=== PATIENT | female | born 1990 | race Hispanic/Latino ===

== ENCOUNTER 2017-08-03 11:19 | Emergency (ER) | payer MEDICAID ==
[~2017-08-03] VITALS: Ht 160 cm; Wt 59.5 kg
[~2017-08-03 11:19] MED LIST: MAGICMW SSP; NYQU1LIQ PO
[2017-08-03] MEDS ORDERED: OSEL75CA PO (13:16)
[2017-08-03] MEDS ORDERED: ZOFR4TAB3 PO (13:16)
[2017-08-03] MEDS ORDERED: CHERSYP3 PO (13:16)
[2017-08-03] MEDS ORDERED: PROAAER10 INH (13:16)
[2017-08-03 13:30] VITALS: BP 136/71
== END 2017-08-03 13:35 | disposition home or self-care (01) ==
LOC: M ED 11:19
DX: B34.9 Viral infection, unspecified (principal); R05 Cough; R11.0 Nausea; J45.909 Unspecified asthma, uncomplicated

== ENCOUNTER → 2018-07-07 | Outpatient (REF) | payer MEDICAID, OTHER, SELFPAY | LOC: M LAB REF 09:00 | DX: Z12.4 Encounter for screening for malignant neoplasm of cervix (principal) | CPT/HCPCS: 88142; G0123 ==

== ENCOUNTER → 2018-08-19 | Outpatient (CLI) | payer MEDICAID ==
[2018-08-19 18:21] LABS: BASO # 0.1 10^3/uL (0.0-0.2); BASO % 0.4 % (0.0-1.0); EOS # 0.7 10^3/uL (0.0-0.50); EOS % 5.1 % (0.0-3.0); HEMOGLOBIN 12.1 g/dl (12.0-15.5); IMMATURE GRANULOCYTE % 0.5 % (0-3.0); LYMPH # 3.7 10^3/uL (1.5-6.5); LYMPH % 27.2 % (24.0-44.0); MEAN CORPUSCULAR HEMOGLOBIN 26.2 pg (27.0-33.0); MEAN CORPUSCULAR HGB CONC 32.7 g/dl (32.0-36.5); MEAN CORPUSCULAR VOLUME 80.1 fl (80.0-96.0); MONO # 1.3 10^3/uL (0.0-0.8); MONO % 9.7 % (0.0-5.0); NEUTROPHILS # 7.7 10^3/uL (1.8-7.7); NEUTROPHILS % 57.1 % (36.0-66.0); PLATELET COUNT, AUTOMATED 428 10^3/uL (150-450); RED BLOOD COUNT 4.62 10^6/uL (4.00-5.40); RED CELL DISTRIBUTION WIDTH 13.6 % (11.5-14.5); WHITE BLOOD COUNT 13.5 10^3/uL (4.0-10.0)
[2018-08-19 20:08] LABS: CHLAMYDIA DNA AMPLIFICATION NEGATIVE (NEGATIVE); GC DNA AMPLIFICATION NEGATIVE (NEGATIVE)
[2018-08-20 11:29] LABS: HBsAg Prenatal NEGATIVE (NEGATIVE); HIV 1&2 SCREEN CENTAUR NEGATIVE (NEGATIVE); RUBELLA IgG QUALITATIVE IMMUNE (IMMUNE)
[2018-08-20 11:29] LABS: HEPATITIS C VIRUS ABY INDEX 0.2 INDEX (<0.8)
== END ==
LOC: M SMT 14:25
DX: Z34.81 Encounter for supervision of other normal pregnancy, first trimester (principal); Z3A.09 9 weeks gestation of pregnancy
CPT/HCPCS: 86762

== ENCOUNTER → 2018-10-27 | Outpatient (CLI) | payer MEDICAID, OTHER ==
[~2018-10-27] MED LIST changes: +CHERSYP3 PO; +OSEL75CA PO; +PROAAER10 INH; +ZOFR4TAB14 PO
--- NOTE | 2018-10-27 20:06 | REP ---
Clinical: Anatomical evaluation. Comparison: None . Findings: Examination demonstrates a single live intrauterine in cephalic presentation. motion is identified by technologist. Placenta is noted the posterior and grade grade 1 without evidence for placenta previa or abruption. Amniotic fluid volume is normal. Cervix measures 3.4 cm in length and appears closed. No evidence for nuchal cord. Gestational age by LMP 18 weeks 6 days with TRAVIS 03/24/2019 . Gestational age by current measurements 19 weeks 1 day with TRAVIS 03/22/2019 . FHR equals 153 beats per minute. BPD 4.5 cm 19 weeks 4 days HC 16.5 cm 19 weeks 2 days AC 13.9 19 weeks 2 days FL 2.9 cm 18 weeks 6 days HL 2.77 it is 18 weeks 6 days HC/AC ratio 1.19 Estimated weight 277 grams ( 56 percentile). Anatomical assessment demonstrates normal structures including cranium, choroid plexus, cavum, cerebellum/posterior fossa, facial features, lungs, four-chamber heart/ventricular outflow tracts, diaphragm, stomach, cord insertion/three-vessel cord, kidneys/bladder, spine, and extremities. Impression: 1. Single live intrauterine in cephalic presentation demonstrating appropriate interval growth. 2. Anatomical assessment is complete and normal. No gross abnormalities are identified. Electronically Signed by Cale Milian MD 10/27/2018 07:58 P
== END ==
LOC: M RAD 08:54
PROVIDERS: ATTEND Advanced Practice Midwife
DX: Z34.82 Encounter for supervision of other normal pregnancy, second trimester (principal); Z36.89 Encounter for other specified antenatal screening; Z3A.18 18 weeks gestation of pregnancy

== ENCOUNTER 2018-12-26 20:25 | Emergency (ER) | payer OTHER ==
[~2018-12-26] VITALS: Ht 157.5 cm; Wt 74.5 kg
[2018-12-27 00:23] LABS: INFLUENZA A AMPLIFICATION NEGATIVE (NEGATIVE); INFLUENZA B AMPLIFICATION NEGATIVE (NEGATIVE)
[2018-12-27 00:44] VITALS: BP 139/79
== END 2018-12-27 00:49 | disposition home or self-care (01) ==
LOC: M ED 20:25
DX: J06.9 Acute upper respiratory infection, unspecified (principal)

== ENCOUNTER → 2019-01-03 | Outpatient (CLI) | payer OTHER ==
[2019-01-03 13:34] LABS: HEMATOCRIT 33.7 % (36.0-47.0); HEMOGLOBIN 10.9 g/dl (12.0-15.5); MEAN CORPUSCULAR HEMOGLOBIN 26.9 pg (27.0-33.0); MEAN CORPUSCULAR HGB CONC 32.3 g/dl (32.0-36.5); MEAN CORPUSCULAR VOLUME 83.2 fl (80.0-96.0); PLATELET COUNT, AUTOMATED 424 10^3/uL (150-450); RED BLOOD COUNT 4.05 10^6/uL (4.00-5.40); WHITE BLOOD COUNT 14.5 10^3/uL (4.0-10.0)
== END ==
LOC: M SMT 08:08
PROVIDERS: ATTEND Obstetrics & Gynecology
DX: Z34.82 Encounter for supervision of other normal pregnancy, second trimester (principal); Z3A.00 Weeks of gestation of pregnancy not specified

== ENCOUNTER → 2019-02-25 | Outpatient (CLI) | payer OTHER | LOC: M SMT 09:10 | PROVIDERS: ATTEND Advanced Practice Midwife | DX: Z34.03 Encounter for supervision of normal first pregnancy, third trimester (principal); Z3A.00 Weeks of gestation of pregnancy not specified ==

== ENCOUNTER 2019-03-18 23:31 | Inpatient (IN) | payer OTHER ==
[~2019-03-18] VITALS: Ht 157.5 cm; Wt 80.5 kg
[2019-03-18 23:51] VITALS: BP 130/85
[2019-03-19] VITALS (30 sets, daily range): BP systolic 91–164; BP diastolic 54–96
[2019-03-19] MEDS ORDERED: PRENTAB9 PO (00:28)
[2019-03-19] MEDS ORDERED: LACTATED RINGER'S 1000 ML IV STA (00:46)
--- NOTE | 2019-03-19 01:01 | HPEPDOC ---
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 Past Medical History Surgical History: Diagnostic laparoscopy Family History Significant Family History: Other (depression) Social History Marital Status: Single Family situation: Spouse/partner home Psychosocial History: No pertinent psych hx * Smoker: non-smoker Alcohol: Denies Drugs: denies Abuse Violence Screening Have you been hit/kicked/slapp: No Have you been sexually assault: No Imunizations Tdap status: declined Allergies Coded Allergies: No Known Allergies (Unverified , 03/19/19) Medications Scheduled No.137/Iron/Folic Acd ( Vitamin Tablet) 1 Each Tablet, 1 TAB PO DAILY Physical Examination Physical Examination GENERAL: Alert and oriented times three. BREAST: . ABDOMEN: Gravid and non-tender to touch. FETUS: Is vertex (VTX) by sterile vaginal examination (SVE), fetus is vertex (VTX) by Emmanuel. HEART RATE: Regular rate and rhythm. LUNGS: Clear to auscultation (CTA). EXTREMITIES: No edema. No clonus. Deep tendon reflexes (DTRs) + 2. Laboratory Data 24H [facility]S Laboratory Tests 2 03/19/19 00:17: Serology Scanned Report Hepatitis B Testing Pertinent Laboratoy Data Blood Type: O+ RBC Antibody Screen: Negative HIV: Negative Hepatitis B: Negative Hepatitis C: Negative Rapid Plasma Reagin: Nonreactive Rubella: Immune Chlamydia/Gonorrhea: Negative Group B Streptococcus: Negative Quad Screen Test: Declined Glucose Tolerance Test: 97 Anatomy Ultrasound Ultrasound Date: Oct 27, 2018 Placenta Location: Posterior Normal Anatomy: Yes Placenta Previa: No Estimated Weight (grams): 277 Other Ultrasounds 08/19/18 dating 9w1d Steroid Therapy Steroid Therapy: No Vaginal Examination Dilation: 2cm (-3) Effacement: 80% Station: -2 Cervical Consistency: Medium Cervical Position: Middle Presentation: Cephalic presentation Assessment Heart Rate (FHR): 135 Variability: Moderate Accelerations: Positive Decelerations: None Tocometer Contractions: Yes Frequency: irregular Strength: palpated as mild Assessment/Plan Assessment Ronna is a 28-year-old (G)1 para (P)0-0-0-0 at 39+2 weeks by 9-week ultrasound. Presents to Labor and Delivery (L&D) with reports of SROM clear fluid 2229. Reports onset mild cramping thereafter. Denies bleeding. Reports good activity. Plan Admit and orient. Electronics Research Engineer and consent. Diet: Regular. Group B Streptococcus (GBS) negative. Labs and intravenous (IV) per unit protocol. Counseled on Pitocin and induction of labor (IOL) if required Lactated Ringers (LR): Bolus 500 mL, then saline lock. Plans to labor ad yolette Anticipate normal spontaneous delivery (). C-S as appropriate. Sugar Ceron CNM Mar 19, 2019 01:01
[2019-03-19 01:24] LABS: HEMATOCRIT 32.3 % (36.0-47.0); HEMOGLOBIN 10.4 g/dl (12.0-15.5); MEAN CORPUSCULAR HEMOGLOBIN 25.4 pg (27.0-33.0); MEAN CORPUSCULAR HGB CONC 32.2 g/dl (32.0-36.5); PLATELET COUNT, AUTOMATED 440 10^3/uL (150-450); RED BLOOD COUNT 4.09 10^6/uL (4.00-5.40); WHITE BLOOD COUNT 17.2 10^3/uL (4.0-10.0)
[2019-03-19] MEDS ORDERED: CALCIUM CARBONATE 500 MG CHEW U/D PO PRN (03:00)
[2019-03-19] MEDS ORDERED: OXYTOCIN DRIP 30 UNITS in APPROPRIATE DILUENT 1 EA IV SCH ×2 (04:15→17:47)
[2019-03-19] MEDS: LR 1,000 ML IV SCH ×3 (04:24→17:47)
[2019-03-19] MEDS ORDERED: BUTORPHANOL 2 MG/ML INJ (J0595) IV ONE (11:45)
[2019-03-19] MEDS ORDERED: PROMETHAZINE INJ 25 MG/ML VIAL (J2550) IV ONE (11:45)
--- NOTE | 2019-03-19 14:57 | NUR ---
Progress Note Pt coping with pain. Has received IV Stadol and Phenergan. Declining epidural. +bloody show and clear amniotic fluid. SROM at 1030p last night. Pt has been actively managed with Pitocin. VSS,normal HR, afebrile SVE: 8cm, 100%, 0 station. EFM: Cat I [place]: ctxs difficult to trace, but occurring every 2-4min. Pit at 14mU/min. A/P: Active labor. Normal progression. Reassuring maternal and status. Bolivar Hardwick DO
--- NOTE | 2019-03-19 17:47 | NUR ---
Delivery note Spontaneous vaginal delivery Estimated gestational age at delivery: 39+ weeks The active phase and second stage of labor progressed in normal fashion without epidural anesthesia. Patient received Pitocin labor augmentation for active management. The head delivered left occiput anterior and restituted left occiput transverse. No nuchal cord was noted. The anterior shoulder delivered with gentle downward guidance and the remainder of the body delivered with ease. Cord clamping was delayed for approximately 1 minute after delivery. After doubly clamping and cutting the cord, the was placed on the patient's chest for immediate bonding. [place] data: Apgars 8 and 9. weight 3300 grams 7 pounds, 4 ounces. Time of delivery: 1719. Sex: Female. [place]. The third stage of labor was actively managed with a bolus of IV Pitocin (30 units in 500 mL of normal saline). The placenta delivered completely intact with no missing cotyledons at 1723. A three-vessel cord with a central insertion was noted. After delivery of the placenta, the uterine fundus was approximately 2 cm below the umbilicus and firm. IV Pitocin was continued to maintain uterine tone. A normal, low level of uterine bleeding was noted. The cervix, vagina, vulva and perineum were inspected for lacerations. A second laceration was noted. This was repaired with 3-0 Vicryl in typical fashion under local anesthetic (Lidocaine 1%). Excellent hemostasis was noted. Estimated blood loss: 300mL All sponges, needles, and instruments were accounted for per INSURANCE MARKETING SPECIALIST department protocol. Luis Fernando Hardwick D.O., F.Chel.Av.Tramaine.
[2019-03-19] MEDS ORDERED: MEASLES,MUMPS,RUBELLA VACCINE INJ (MMR-II) (90707) SC SCH (18:00)
[2019-03-19] MEDS ORDERED: DOCUSATE SODIUM 100 MG CAP PO PRN (18:00)
[2019-03-19] MEDS ORDERED: IBUPROFEN 600 MG TAB PO PRN (18:00)
[2019-03-19] MEDS ORDERED: DIBUCAINE 1% OINTMENT 30GM TOP PRN (18:00)
[2019-03-19] MEDS ORDERED: ACETAMINOPHEN TAB 650MG DOSE (2X325MG) PO PRN (18:00)
[2019-03-19] MEDS ORDERED: ONDANSETRON 4MG/2ML VIAL (J2405) IV PRN (18:00)
[2019-03-19] MEDS ORDERED: LIDOCAINE 1% MDV 20ML VIAL INFIL ONE (18:00)
[2019-03-19] MEDS ORDERED: PROMETHAZINE 25 MG TAB PO PRN (18:00)
[2019-03-19] MEDS: IBUPROFEN 800 MG TAB PO PRN (19:15)
[2019-03-19] MEDS: ACETAMINOPHEN 500 MG TAB PO PRN (20:02)
[2019-03-19] MEDS: ANUSOL HC CREAM 30GM TOP SCH (21:40)
[2019-03-20] MEDS ORDERED: CALCIUM CARBONATE 500 MG CHEW U/D PO PRN (01:15)
[2019-03-20] MEDS: ACETAMINOPHEN 500 MG TAB PO PRN ×2 (05:11→17:22)
[2019-03-20 06:20] VITALS: BP 111/69
[2019-03-20] MEDS: LR 1,000 ML IV SCH (07:47)
[2019-03-20] MEDS: PRENATAL VITAMINS CHEWABLE TABLET PO SCH (07:48)
[2019-03-20] MEDS: ANUSOL HC CREAM 30GM TOP SCH ×3 (07:49→20:05)
--- NOTE | 2019-03-20 09:36 | NUR ---
Day 1 Status post , uncomplicated Subjective Pain is well controlled. Lochia decreasing and minimal. Voiding spontaneously. Tolerating a regular diet. Ambulating without any assistance. Denies any subjective fever/chills/nausea/vomiting/headache/visual changes/shortness of breath/chest pain. Breast feeding. Objective Vitals: Normotensive, normal heart rate, afebrile, adequate urine output. Heart: regular, rate, and rhythm. no murmurs/gallops/rubs Lungs: clear to auscultation bilaterally, no wheezes/crackles/rales/ronchi Abd: soft, nontender, nondistended, uterine fundus is 2cm below umbilicus and firm Ext: no significant edema, nontender, negative Rip's bilaterally. Assessment/Plan: day 1. Recovering well. Hemodynamically stable, afebrile, good pain control. -Routine care -Discharge to home tomorrow. -Routine infectious, fever, pain, and bleeding precautions reviewed Armond Curtis.O., F.A.C.O.G.
[2019-03-20 17:53] VITALS: BP 106/56
[2019-03-21] MEDS: ACETAMINOPHEN 500 MG TAB PO PRN (03:30)
[2019-03-21 06:00] VITALS: BP 133/67
[2019-03-21] MEDS: PRENATAL VITAMINS CHEWABLE TABLET PO SCH (08:15)
[2019-03-21] MEDS: ANUSOL HC CREAM 30GM TOP SCH (08:16)
[2019-03-21] MEDS: IBUPROFEN 800 MG TAB PO PRN (08:16)
--- NOTE | 2019-03-21 08:21 | NUR ---
Day 2 Status post , uncomplicated Subjective Pain is well controlled. Lochia decreasing and minimal. Voiding spontaneously. Tolerating a regular diet. Ambulating without any assistance. Denies any subjective fever/chills/nausea/vomiting/headache/visual changes/shortness of breath/chest pain. Breast feeding. Objective Vitals: Normotensive, normal heart rate, afebrile, adequate urine output. Heart: regular, rate, and rhythm. no murmurs/gallops/rubs Lungs: clear to auscultation bilaterally, no wheezes/crackles/rales/ronchi Abd: soft, nontender, nondistended, uterine fundus is 2cm below umbilicus and firm Ext: no significant edema, nontender, negative Rpi's bilaterally. Assessment/Plan: day 2. Recovering well. Hemodynamically stable, afebrile, good pain control. -Routine care -Discharge to home today. -Routine infectious, fever, pain, and bleeding precautions reviewed Dr. Luis Fernando Hardwick, Armond.Greg., F.A.C.O.G
[2019-03-21] MEDS ORDERED: IBUP80TA PO (08:22)
== END 2019-03-21 17:05 | disposition home or self-care (01) | DRG 560 ==
LOC: M LDO 23:31 → M LDI 03-19 00:12 → M OBS 03-19 20:19
PROVIDERS: ADMIT Advanced Practice Midwife; ATTEND Obstetrics & Gynecology
PROC: 10E0XZZ Delivery of Products of Conception, External Approach (ICD-10-PCS; principal; 2019-03-19)
PROC: 0KQM0ZZ Repair Perineum Muscle, Open Approach (ICD-10-PCS; 2019-03-19)
DX: O70.1 Second degree perineal laceration during delivery (principal); Z3A.39 39 weeks gestation of pregnancy; Z37.0 Single live birth